=== PATIENT | female | born 1965 | race American Indian/Alaskan Native ===

== ENCOUNTER 2020-01-11 16:39 | Emergency (ER) | payer OTHER ==
[2020-01-11 16:52] VITALS: BP 190/96
--- NOTE | 2020-01-11 16:56 | Event Note ---
ED Screening Note Date of service: 01/11/20 Time: 16:52 ED Screening Note: Pt complains of substernal chest pain and SOB x 1 week hx of HTN denies leg pain, but admits to 6 hour car ride from [place] +leg chronic ankle swelling, no new changes per pt no hormone use or hx of DVT/PE mother has hx of heart dz no ttp of lower legs This initial assessment/diagnostic orders/clinical plan/treatment(s) is/are subject to change based on patients health status, clinical progression and re-assessment by fellow clinical providers in the ED. Further treatment and workup at subsequent clinical providers discretion. Patient/guardian urged not to elope from the ED as their condition may be serious if not clinically assessed and managed. Initial orders include: labs CXR ekg
[2020-01-11 17:14] LABS: Basophils % (Auto) 0.5 % (0.0-1.8); Eosinophils # (Auto) 0.2 K/mm3 (0.0-0.4); Eosinophils % (Auto) 2.3 % (0.0-4.3); Hematocrit 38.4 % (30.3-42.9); Lymphocytes # (Auto) 1.6 K/mm3 (1.2-5.4); Lymphocytes % (Auto) 18.7 % (13.4-35.0); Mean Corpuscular HGB Conc 34 % (30-34); Mean Corpuscular Volume 88 fl (79-97); Monocytes # (Auto) 0.5 K/mm3 (0.0-0.8); Monocytes % (Auto) 5.5 % (0.0-7.3); Platelet Count 206 K/mm3 (140-440); Red Blood Count 4.38 M/mm3 (3.65-5.03); Red Cell Distribution Width 15.6 % (13.2-15.2)
--- NOTE | 2020-01-11 17:26 | XRay Report ---
CHEST 2 VIEWS INDICATION / CLINICAL INFORMATION: Chest Pain. COMPARISON: None available. FINDINGS: SUPPORT DEVICES: None. HEART / MEDIASTINUM: The cardiac silhouette is mildly enlarged. LUNGS / PLEURA: Nonspecific generalized bilateral interstitial opacities are noted without a dense ar ea of consolidation, pneumothorax or pleural effusion. ADDITIONAL FINDINGS: No significant additional findings. IMPRESSION: Mild cardiomegaly with possible interstitial edema. Please correlate with the clinical findings. Signer Name: Carlos Benoit MD Signed: 01/11/2020 5:21 PM Workstation Name: [id number]
[2020-01-11 17:30] LABS: Alanine Aminotransferase 34 units/L (7-56); Albumin 4.1 g/dL (3.9-5); BUN/Creatinine Ratio 18; Blood Urea Nitrogen 14 mg/dL (7-17); Calcium 9.5 mg/dL (8.4-10.2); Hemolysis Index 5
--- NOTE | 2020-01-11 19:30 | Emergency Department Report ---
ED Shortness of Breath HPI - General Chief Complaint: Dyspnea/Respdistress Stated Complaint: SOB Time Seen by Provider: 01/11/20 16:51 Source: patient Mode of arrival: Ambulatory Limitations: No Limitations - History of Present Illness Initial Comments: Ms. Ivory is a 54-year-old female with history of congestive heart failure and hypertension. Patient presented to the ER complaining of shortness of breath and cough for the last week. Patient stated that she has been taking Lasix 40 mg twice a day but she feel her symptoms getting worse now. Patient stated that she was diagnosed with bronchitis and she is using inhaler with no improvement. Patient denied any chest pain, fever or chills. She also denied any nausea or vomiting. MD Complaint: shortness of breath, cough -: week(s) (1) Known History Of: congestive heart failure - Related Data Allergies Allergy/AdvReac Type Severity Reaction Status Date / Time No Known Allergies Allergy Unverified 01/11/20 20:00 ED Review of Systems ROS: Stated complaint: SOB Other details as noted in HPI Comment: All other systems reviewed and negative Constitutional: denies: chills, fever Respiratory: cough, orthopnea, shortness of breath, SOB with exertion, SOB at rest. denies: wheezing Cardiovascular: denies: chest pain, palpitations Gastrointestinal: denies: abdominal pain, nausea, vomiting, diarrhea, c onstipation, hematemesis, melena Musculoskeletal: denies: back pain Neurological: denies: headache, weakness, numbness, paresthesias, confusion, abnormal gait ED Past Medical Hx - Past Medical History Previous Medical History?: No - Surgical History Past Surgical History?: No ED Physical Exam - General Limitations: No Limitations General appearance: alert, in no apparent distress - Head Head exam: Present: atraumatic, normocephalic, normal inspection - Eye Eye exam: Present: normal appearance - ENT ENT exam: Present: normal exam, normal orophraynx, mucous membranes moist - Neck Neck exam: Present: normal inspection, full ROM. Absent: tenderness, meningismus - Respiratory Respiratory exam: Present: normal lung sounds bilaterally - Cardiovascular Cardiovascular Exam: Present: regular rate, normal rhythm, normal heart sounds - GI/Abdominal GI/Abdominal exam: Present: soft, normal bowel sounds. Absent: distended, tenderness, guarding, rebound, rigid, organomegaly, mass, bruit, pulsatile mass, hernia - Extremities Exam Extremities exam: Present: normal inspection, full ROM, normal capillary refill, pedal edema. Absent: calf tenderness - Back Exam Back exam: Present: normal inspection, full ROM. Absent: CVA tenderness (R), CVA tenderness (L) - Neurological Exam Neurological exam: Present: alert, oriented X3, CN II-XII intact, normal gait, reflexes normal. Absent: motor sensory deficit - Psychiatric Psychiatric exam: Present: normal mood - Skin Skin exam: Present: warm, intact, normal color ED Course Vital Signs 01/11/20 16:50 Temperature 98.2 F Pulse Rate 61 Respiratory 18 Rate Blood Pressure 190/96 O2 Sat by Pulse 98 Oximetry ED Medical Decision Making - Lab Data Result diagrams: 01/11/20 17:03 01/11/20 17:03 - EKG Data -: EKG Interpreted by Sc EKG shows normal: sinus rhythm Rate: normal - EKG Data Interpretation: no acute changes - Radiology Data Radiology results: report reviewed - Medical Decision Making Ms. Ivory is a 54-year-old female with history of congestive heart failure and hypertension. Patient presented to the ER complaining of shortness of breath and cough for the last week. Patient stated that she has been taking Lasix 40 mg twice a day but she feel her symptoms getting worse now. Patient stated that she was diagnosed with bronchitis and she is using inhaler with no improvement. Patient denied any chest pain, fever or chills. She also denied any nausea or vomiting. EKG is unremarkable. Chest x-ray showed pulmonary edema. Labs reviewed and unremarkable. Patient advised to increase her Lasix to 60 mg in the morning and 40 at night. Patient given prescription for Lasix 20 mg. Bronchitis is also a possibility so patient given prescription for prednisone and Levaquin and advised to follow-up with her primary doctor in the next 2 to 3 days and to return to the ER if she develop any new symptoms. Critical care attestation.: If time is entered above; I have spent that time in minutes in the direct care of this critically ill patient, excluding procedure time. ED Disposition Clinical Impression: Shortness of breath, CHF exacerbation, Acute bronchitis Disposition: - TO HOME OR SELFCARE Is pt being admited?: No Condition: Stable Instructions: Acute Bronchitis (ED), Heart Failure (ED) Referrals: [facility] [Provider Group] - 3-5 Days
== END 2020-01-11 20:32 | disposition home or self-care (01) ==
LOC: ED 16:39
DX: I11.0 Hypertensive heart disease with heart failure (principal); I50.9 Heart failure, unspecified; J20.9 Acute bronchitis, unspecified; R06.02 Shortness of breath
CPT/HCPCS: 36415; 71046; 80053; 83880; 84484; 85025; 93005

== ENCOUNTER 2020-02-29 09:52 | Emergency (ER) | payer OTHER ==
[2020-02-29] MEDS ORDERED: ASPIRIN 325 MG TAB PO ONE (10:07)
--- NOTE | 2020-02-29 11:03 | XRay Report ---
XR chest 1V ap INDICATION / CLINICAL INFORMATION: Chest Pain. COMPARISON: 03/12/2020 FINDINGS: SUPPORT DEVICES: None. HEART /PULMONARY VASCULATURE: The cardiac silhouette is enlarged with stable prominence of the pulmon jarett vasculature. LUNGS / PLEURA: Stable diffuse increased interstitial markings. No focal airspace consolidation or ef fusion. No pneumothorax. ADDITIONAL FINDINGS: No significant additional findings. IMPRESSION: Cardiomegaly with similar increased interstitial markings, which may reflect interstitial edema. Signer Name: Jonatan Johansen MD Signed: 02/29/2020 10:59 AM Workstation Name: [id number]
[2020-02-29 11:23] LABS: Basophils # (Auto) 0.1 K/mm3 (0.0-0.1); Basophils % (Auto) 0.7 % (0.0-1.8); Eosinophils # (Auto) 0.2 K/mm3 (0.0-0.4); Eosinophils % (Auto) 1.9 % (0.0-4.3); Hematocrit 40.5 % (30.3-42.9); Hemoglobin 13.5 gm/dl (10.1-14.3); Lymphocytes # (Auto) 1.6 K/mm3 (1.2-5.4); Lymphocytes % (Auto) 20.5 % (13.4-35.0); Mean Corpuscular HGB Conc 33 % (30-34); Mean Corpuscular Volume 87 fl (79-97); Monocytes # (Auto) 0.5 K/mm3 (0.0-0.8); Monocytes % (Auto) 6.5 % (0.0-7.3); Platelet Count 204 K/mm3 (140-440); Red Blood Count 4.65 M/mm3 (3.65-5.03); Red Cell Distribution Width 15.4 % (13.2-15.2)
[2020-02-29 11:46] LABS: BUN/Creatinine Ratio 15; Blood Urea Nitrogen 12 mg/dL (7-17); Calcium 9.5 mg/dL (8.4-10.2); Hemolysis Index 7
--- NOTE | 2020-02-29 13:09 | Emergency Department Report ---
ED Chest Pain HPI - General Chief Complaint: Chest Pain Stated Complaint: CHEST PAIN Time Seen by Provider: 02/29/20 12:55 Source: patient Mode of arrival: Ambulatory Limitations: No Limitations - History of Present Illness Initial Comments: Patient is 55 years old female with history of hypertension and congestive heart failure. Patient presented to the ER complaining of chest pain, diffuse with no radiation. Patient described her pain as dull aching. Patient is also complaining of shortness of breath started at the same time when she started scott ving her chest pain approximately 1 week ago. Patient stated that she is out of her Lasix for approximately 10 days now. Patient also stated that she is not compliant with her congestive heart failure diet. Patient denied any fever or chills. No abdominal pain, nausea or vomiting. MD Complaint: chest pain -: week(s) Onset: during rest Pain Location: substernal, left chest, right chest, epigastric Pain Radiation: none Quality: dull Consistency: intermittent - Related Data Previous Rx's Medication Instructions Recorded Last Taken Type Furosemide [Lasix] 20 mg PO QDAY #7 tablet 01/11/20 Unknown Rx Potassium Chloride [K-Dur] 20 meq PO QDAY #30 tablet 01/11/20 Unknown Rx Prednisone [predniSONE 10 mg 10 mg PO .TAPER #1 tab.ds.pk 01/11/20 Unknown Rx (6-Day Pack, 21 Tabs)] levoFLOXacin [Levaquin TAB] 500 mg PO QDAY #7 tablet 01/11/20 Unknown Rx Allergies Allergy/AdvReac Type Severity Reaction Status Date / Time No Known Allergies Allergy Verified 02/29/20 12:55 Heart Score - HEART Score History: Slightly suspicious EKG: Non-specific Age: 45-65 Risk factors: 1-2 risk factors Troponin: < normal limit HEART Score: 3 - Critical Actions Critical Actions: 0-3 pts:0.9-1.7%risk of adverse cardiac event.Candidate for discharge ED Review of Systems ROS: Stated complaint: CHEST PAIN Other details as noted in HPI Comment: All other systems reviewed and negative Constitutional: denies: chills, fever Respiratory: orthopnea, shortness of breath, SOB with exertion. denies: cough Cardiovascular: chest pain. denies: palpitations Gastrointestinal: denies: abdominal pain, nausea, vomiting Musculoskeletal: denies: back pain ED Past Medical Hx - Past Medical History Previous Medical History?: Yes Hx Hypertension: Yes Hx Congestive Heart Failure: Yes - Social History Smoking Status: Never Smoker Substance Use Type: None - Medications Home Medications: Home Medications Medication Instructions Recorded Confirmed Last Taken Type Furosemide [Lasix] 20 mg PO QDAY #7 tablet 01/11/20 Unknown Rx Potassium Chloride [K-Dur] 20 meq PO QDAY #30 tablet 01/11/20 Unknown Rx Prednisone [predniSONE 10 mg 10 mg PO .TAPER #1 tab.ds.pk 01/11/20 Unknown Rx (6-Day Pack, 21 Tabs)] levoFLOXacin [Levaquin TAB] 500 mg PO QDAY #7 tablet 01/11/20 Unknown Rx ED Physical Exam - General Limitations: No Limitations General appearance: alert, in no apparent distress - Head Head exam: Present: atraumatic, normocephalic, normal inspection - Eye Eye exam: Present: normal appearance, PERRL - ENT ENT exam: Present: normal exam, normal orophraynx, mucous membranes moist - Neck Neck exam: Present: normal inspection, full ROM. Absent: tenderness, meningismus - Respiratory Respiratory exam: Present: normal lung sounds bilaterally - Cardiovascular Cardiovascular Exam: Present: regular rate, normal rhythm, normal heart sounds - GI/Abdominal GI/Abdominal exam: Present: soft, normal bowel sounds. Absent: distended, tenderness, guarding, rebound, rigid, organomegaly, mass, bruit, pulsatile mass, hernia - Extremities Exam Extremities exam: Present: normal inspection, full ROM, normal capillary refill. Absent: tenderness - Back Exam Back exam: Present: normal inspection, full ROM. Absent: CVA tenderness (R), CVA tenderness (L) - Neurological Exam Neurological exam: Present: alert, oriented X3, CN II-XII intact - Psychiatric Psychiatric exam: Present: normal mood - Skin Skin exam: Present: warm, intact, normal color ED Course Vital Signs 02/29/20 02/29/20 11:11 11:13 Temperature 98.3 F Pulse Rate 79 Respiratory 18 Rate Blood Pressure 202/90 Blood Pressure 196/95 [Right] O2 Sat by Pulse 98 Oximetry ED Medical Decision Making - Lab Data Result diagrams: 02/29/20 11:13 02/29/20 11:13 - EKG Data -: EKG Interpreted by Mt EKG shows normal: sinus rhythm Rate: normal - EKG Data Interpretation: no acute changes - Radiology Data Radiology results: report reviewed - Medical Decision Making Patient is 55 years old female with history of hypertension and congestive heart failure. Patient presented to the ER complaining of chest pain, diffuse with no radiation. Patient described her pain as dull aching. Patient is also complaining of shortness of breath started at the same time when she started having her chest pain approximately 1 week ago. Patient stated that she is out of her Lasix for approximately 10 days now. Patient also stated that she is not compliant with her congestive heart failure diet. Patient denied any fever or chills. No abdominal pain, nausea or vomiting. EKG is unremarkable. Labs reviewed and is unremarkable including negative troponin x2. I believe patient symptom is most likely related to her congestive heart failure exacerbation. Patient given prescription for Lasix and given [facility] to follow-up with in the next 2 to 3 days. Patient also advised to return to the ER she develop any new symptoms. Critical care attestation.: If time is entered above; I have spent that time in minutes in the direct care of this critically ill patient, excluding procedure time. ED Disposition Clinical Impression: Chest pain, CHF exacerbation Disposition: DC-01 TO HOME OR SELFCARE Is pt being admited?: No Condition: Stable Instructions: Chest Pain (ED), Nonspecific Chest Pain, Adult, Heart Failure, Self Care, [id number] [facility] - [facility] Days
[2020-02-29 15:32] VITALS: BP 197/90
== END 2020-02-29 15:31 | disposition home or self-care (01) ==
LOC: ED 09:52
DX: I50.9 Heart failure, unspecified (principal); I11.0 Hypertensive heart disease with heart failure; R07.89 Other chest pain; Z79.899 Other long term (current) drug therapy
CPT/HCPCS: 36415; 71045; 80048; 84484; 85025; 93005

== ENCOUNTER 2020-09-22 19:34 | Emergency (ER) | payer MEDICAID ==
[2020-09-22] MEDS ORDERED: diphenhydrAMINE 25 MG CAP PO ONE (23:26)
[2020-09-22] MEDS ORDERED: FAMOTIDINE 20 MG TAB PO ONE (23:26)
[2020-09-22] MEDS ORDERED: predniSONE 20 MG TAB PO ONE (23:26)
[2020-09-22] MEDS ORDERED: traMADol 50 MG TAB PO ONE (23:27)
--- NOTE | 2020-09-22 23:44 | Emergency Department Report ---
ED General Adult HPI - General Chief complaint: Extremity Problem,Nontraumatic Stated complaint: INSECT BITE Time Seen by Provider: 09/22/20 23:19 Source: patient Mode of arrival: Ambulatory Limitations: Physical Limitation - History of Present Illness Initial comments: Patient 55-year-old -[place] female who presents for insect bite versus sting to her right posterior lower leg. Patient denies fevers or chills there is no numbness or tingling. No drainage Patient is ambulatory states insect sting occurred today while outside in her yard. Symptoms include burning itching. There are no hives no lesions no shortness of breath wheezing or stridor. Pt advises that she did not see spider or insect. There are no other relieving or exacerbating factors. Severity scale (0 -10): 5 - Related Data Previous Rx's Medication Instructions Recorded Last Taken Type Furosemide [Lasix] 20 mg PO QDAY #7 tablet 01/11/20 Unknown Rx Potassium Chloride [K-Dur] 20 meq PO QDAY #30 tablet 01/11/20 Unknown Rx Prednisone [predniSONE 10 mg 10 mg PO .TAPER #1 tab.ds.pk 01/11/20 Unknown Rx (6-Day Pack, 21 Tabs)] levoFLOXacin [Levaquin TAB] 500 mg PO QDAY #7 tablet 01/11/20 Unknown Rx Furosemide [Lasix] 20 mg PO QDAY #90 tablet 02/29/20 Unknown Rx amLODIPine 5 mg PO DAILY #30 tab 02/29/20 Unknown Rx Famotidine [Pepcid] 20 mg PO BID PRN #30 tablet 09/23/20 Unknown Rx diphenhydrAMINE [Benadryl CAP] 25 mg PO Q8HR PRN #15 capsule 09/23/20 Unknown Rx predniSONE [Deltasone] 40 mg PO QDAY 5 Days #10 tab 09/23/20 Unknown Rx Allergies Allergy/AdvReac Type Severity Reaction Status Date / Time No Known Allergies Allergy Verified 02/29/20 12:55 ED Review of Systems ROS: Stated complaint: INSECT BITE Other details as noted in HPI Constitutional: denies: chills, fever Eyes: denies: eye pain, eye discharge, vision change ENT: denies: ear pain, throat pain Respiratory: denies: cough, shortness of breath, wheezing Cardiovascular: denies: chest pain, palpitations Endocrine: no symptoms reported Gastrointestinal: denies: abdominal pain, nausea, vomiting, diarrhea Genitourinary: denies: urgency, dysuria, discharge Musculoskeletal: denies: back pain, joint swelling, arthralgia Skin: rash (right posterior lower leg). denies: lesions Neurological: denies: headache, weakness, paresthesias Psychiatric: denies: anxiety, depression Hematological/Lymphatic: denies: easy bleeding, easy bruising ED Past Medical Hx - Past Medical History Previous Medical History?: Yes Hx Hypertension: Yes Hx Congestive Heart Failure: Yes Additional medical history: bronchitis - Surgical History Past Surgical History?: No - Social History Smoking Status: Never Smoker Substance Use Type: None - Medications Home Medications: Home Medications Medication Instructions Recorded Confirmed Last Taken Type Furosemide [Lasix] 20 mg PO QDAY #7 tablet 01/11/20 Unknown Rx Potassium Chloride [K-Dur] 20 meq PO QDAY #30 tablet 01/11/20 Unknown Rx Prednisone [predniSONE 10 mg 10 mg PO .TAPER #1 tab.ds.pk 01/11/20 Unknown Rx (6-Day Pack, 21 Tabs)] levoFLOXacin [Levaquin TAB] 500 mg PO QDAY #7 tablet 01/11/20 Unknown Rx Furosemide [Lasix] 20 mg PO QDAY #90 tablet 02/29/20 Unknown Rx amLODIPine 5 mg PO DAILY #30 tab 02/29/20 Unknown Rx Famotidine [Pepcid] 20 mg PO BID PRN #30 tablet 09/23/20 Unknown Rx diphenhydrAMINE [Benadryl CAP] 25 mg PO Q8HR PRN #15 capsule 09/23/20 Unknown Rx predniSONE [Deltasone] 40 mg PO QDAY 5 Days #10 tab 09/23/20 Unknown Rx ED Physical Exam - General Limitations: Physical Limitation General appearance: alert, in no apparent distress - Head Head exam: Present: atraumatic, normocephalic - Eye Eye exam: Present: normal appearance, EOMI Pupils: Present: normal accommodation - ENT ENT exam: Present: mucous membranes moist - Neck Neck exam: Present: normal inspection, full ROM. Absent: tenderness - Respiratory Respiratory exam: Present: normal lung sounds bilaterally. Absent: respiratory distress, wheezes, stridor, chest wall tenderness - Cardiovascular Cardiovascular Exam: Present: regular rate, normal rhythm, normal heart sounds. Absent: systolic murmur, diastolic murmur, rubs, gallop - GI/Abdominal GI/Abdominal exam: Present: soft, normal bowel sounds. Absent: distended, tenderness - Rectal Rectal exam: Present: deferred - Extremities Exam Extremities exam: Present: normal inspection, full ROM. Absent: tenderness, pedal edema, calf tenderness - Expanded Lower Extremity Exam Right Lower Leg exam: Present: full ROM, tenderness, swelling (mild erythem swelling ), erythema (raised smooth erythem sting /bite site, no weeping, no fever , no crepitus, non purulent) Ankle exam: Present: normal inspection. Absent: full ROM, tenderness Foot/Toe exam: Present: normal inspection, full ROM. Absent: tenderness Neuro vascular tendon exam: Absent: pulse deficit, motor deficit, sensory deficit, tendon deficit Gait: Positive: observed and normal - Back Exam Back exam: Present: normal inspection, full ROM. Absent: tenderness - Neurological Exam Neurological exam: Present: alert, oriented X3, normal gait - Psychiatric Psychiatric exam: Present: normal affect, normal mood - Skin Skin exam: Present: warm, dry, intact, normal color, rash (right posterior lower leg as above ) ED Course Vital Signs 09/22/20 09/23/20 20:40 00:07 Temperature 99.1 F Pulse Rate 86 Respiratory 16 20 Rate Blood Pressure 182/89 [Left] O2 Sat by Pulse 95 Oximetry ED Medical Decision Making - Medical Decision Making This is a local reaction to insect sting versus bite, plan DC to home with prescriptions for prednisone, Benadryl, Pepcid. There is no acute cellulitis at this time. Patient is alert oriented x3, patient is amatory with steady gait, distal pulses are intact there is no fever no weeping. Patient will be DC'd home in stable condition at this time. Critical care attestation.: If time is entered above; I have spent that time in minutes in the direct care of this critically ill patient, excluding procedure time. ED Disposition Clinical Impression: Insect bite of lower leg with local reaction Qualifiers: Encounter type: initial encounter Laterality: right Qualified Code(s): S80.861A - Insect bite (nonvenomous), right lower leg, initial encounter Disposition: DC-01 TO HOME OR SELFCARE Is pt being admited?: No Does the pt Need Aspirin: No Instructions: Insect Bite, Adult, [id number], Spider Bite, [id number] Additional Instructions: Take medications as prescribed. Use warm compresses to site. Return to emergency should symptoms worsen. Prescriptions: diphenhydrAMINE [Benadryl CAP] 25 mg PO Q8HR PRN #15 capsule PRN Reason: Itching predniSONE [Deltasone] 40 mg PO QDAY 5 Days #10 tab Famotidine [Pepcid] 20 mg PO BID PRN #30 tablet PRN Reason: Allergy Symptoms Referrals: NEDA PANTOJA MD [Staff Physician] - 3-5 Days Forms: Work/School Release Form(ED) Time of Disposition: 00:18
[2020-09-23 02:06] VITALS: BP 166/78
== END 2020-09-23 00:50 | disposition home or self-care (01) ==
LOC: ED 19:34
DX: S80.861A Insect bite (nonvenomous), right lower leg, initial encounter (principal); I11.0 Hypertensive heart disease with heart failure; I50.9 Heart failure, unspecified; Z79.899 Other long term (current) drug therapy; W57.XXXA Bitten or stung by nonvenomous insect and other nonvenomous arthropods, initial encounter; Y93.89 Activity, other specified; Y92.89 Other specified places as the place of occurrence of the external cause; Y99.8 Other external cause status
CPT/HCPCS: 99282; J7512

== ENCOUNTER 2021-12-05 07:50 | Day surgery (SDC) | payer MEDICAID ==
[~2021-12-05 07:50] MED LIST: SODIUM CHLORIDE 0.9% 1000 ML 1,000 ML IV SCH; WATER FOR IRRIG STERILE 1,000 ML BOTTLE ONE; WATER FOR IRRIG STERILE 250 ML BOTTLE IR ONE
--- NOTE | 2021-12-05 08:39 | Anesthesia Consultation ---
Anesthesia Consult and Med Hx Date of service: 12/05/21 - Airway Anesthetic Teeth Evaluation: Good ROM Head & Neck: Adequate Mental/Hyoid Distance: Adequate Mallampati Class: Class III Intubation Access Assessment: Possibly Difficult - Pre-Operative Health Status ASA Pre-Surgery Classification: ASA4 Proposed Anesthetic Plan: MAC - Pulmonary Hx Smoking: Yes (former smoker quit 3yrs) SOB: Yes (chronic; recent neg heart cath per patient) Hx Sleep Apnea: Yes (+ CPAP) - Cardiovascular System Hx Hypertension: Yes (took antihypertensive this morning) Hx Heart Attack/AMI: No (hx CHF; no signs/symptoms decompensation today) Hx Cardia Arrhythmia: No - Central Nervous System CVA: No - Endocrine Hx Renal Disease: No Hx Liver Disease: Yes (fatty liver) Hx Insulin Dependent Diabetes: No Hx Non-Insulin Dependent Diabetes: No Hx Thyroid Disease: No - Other Systems Hx Obesity: Yes (BMI 51) - Additional Comments Anesthesia Medical History Comments: No hx anesthetic complications.
--- NOTE | 2021-12-05 08:39 | Anesthesia Day of Surgery ---
Anesthesia Day of Surgery - Day of Surgery Patient Examined: Yes Patient H&P Reviewed: Yes Patient is NPO: Yes
[2021-12-05] MEDS ORDERED: propofoL 200 MG/20 ML VIAL IV ONE ×2 (09:55)
--- NOTE | 2021-12-05 10:47 | Short Stay Summary ---
Short Stay Documentation Date of service: 12/05/21 Narrative H&P: The patient presents for EGD to evaluate unexplained upper abdominal pain. - History Past Medical History: heart failure, hypertension, other (History of colon polyps) Past Surgical History: No surgical history Social history: no significant social history - Allergies and Medications Current Medications: Allergies No Known Allergies Allergy (Verified 02/29/20 12:55) Home Medications Medication Instructions Recorded Confirmed Last Taken Type Furosemide [Lasix] 20 mg PO QDAY #7 tablet 01/11/20 Unknown Rx amLODIPine 5 mg PO DAILY #30 tab 02/29/20 Unknown Rx Famotidine [Pepcid] 20 mg PO BID PRN #30 tablet 09/23/20 Unknown Rx Losartan 12/05/21 Unknown History Active Medications Sodium Chloride (Nacl 0.9% 1000 Ml) 1,000 mls @ 50 mls/hr IV DIRECT CHAYITO - Physical exam General appearance: no acute distress, well-nourished, obese Integumentary: no rash, no growths, no abnormal pigmentation HEENT: Atraumatic, PERRLA, EOMI, Mucous membr. moist/pink Lungs: Clear to auscultation, Normal air movement Breasts: deferred Heart: Regular rate, Normal S1, Normal S2, No murmurs Gastrointestinal: normoactive bowel sounds, no tenderness, no distended, no masses, no guarding, no organomegaly, obese Female Genitourinary: deferred Rectal Exam: deferred, no mass Extremities: no ischemia, pulses intact, pulses symmetrical, No edema, normal temperature, normal color, Full ROM Neurological: Normal gait, Normal speech, Strength at 5/5 X4 ext, Normal tone, Sensation intact, Cranial nerves 3-12 NL - Brief post op/procedure progress note Date of procedure: 12/05/21 Findings: see dictation Estimated blood loss: none Pathology: list (antral biopsies for h pylori) Specimen disposition: to lab Condition: stable - Disposition Condition at discharge: Good Disposition: 01 HOME / SELF CARE / HOMELESS - Discharge Diagnoses (1) Upper abdominal pain Status: Acute Short Stay Discharge Plan Activity: other (no driving for 24 hours) Weight Bearing Status: Weight Bear as Tolerated Diet: regular Follow up with: PRIMARY CARE, [Primary Care Provider] - 7 Days
--- NOTE | 2021-12-05 10:50 | Operative Report ---
Operative Report Operative Report: Date of procedure: 12/05/2021 Procedure: Esophagogastroduodenoscopy with biopsies of the antrum for H. pylori Preprocedure diagnosis: Persistent upper abdominal pain, unexplained Post procedure diagnosis: Mild diffuse antral gastritis Endoscopist: Dr. Salcido Anesthesia: Monitored anesthesia care per anesthesia department Medications: Propofol per anesthesia Estimated blood loss: 0 After careful discussion of the nature and purpose of the procedure as well as details the technique risks benefits and alternatives consent was obtained. The patient was placed in the left lateral decubitus position and medicated per anesthesia. The tip of the [employer] EQ 570 video scope was passed per orum under direct vision into the esophagus and advanced into the stomach and descending duodenum. The descending duodenum the duodenal bulb and pylorus were symmetrical and normal. The scope was withdrawn into the stomach and the stomach then gently insufflated with air. The antrum revealed patchy erythema. There were no ulcers or erosions. Multiple biopsies were taken for H. pylori testing. The stomach was further insufflated and the scope was then retroflexed and partially withdrawn. The cardia, fundus, and body of the stomach were within normal limits and easily distensible.The scope was then withdrawn in the forward position. The esophagogastric junction was at 40 cm. The esophageal body was normal throughout. The procedure was was well tolerated and the patient was observed in recovery. Impressions: Mild antral gastritis. Normal appearing upper digestive tract otherwise. Plan: Await biopsies for H. pylori. Electronically signed: Wilder Salcido MD
--- NOTE | 2021-12-05 12:03 | Post Anesthesia Evaluation ---
- Post Anesthesia Evaluation Patient Participated: Yes Airway Patent: Yes Stable Respiratory Function: Yes Nausea/Vomiting: No Temp > 96.8F: Yes Pain Manageable: Yes Adequeate Hydration: Yes Anesthesia Complications: No
[2021-12-05 14:32] VITALS: BP 149/83
== END 2021-12-05 11:30 | disposition home or self-care (01) ==
LOC: GIO 07:50
PROVIDERS: ATTEND Internal Medicine Gastroenterology
DX: R10.10 Upper abdominal pain, unspecified (principal); K29.70 Gastritis, unspecified, without bleeding; K29.50 Unspecified chronic gastritis without bleeding; B96.81 Helicobacter pylori [H. pylori] as the cause of diseases classified elsewhere; I11.0 Hypertensive heart disease with heart failure; I50.9 Heart failure, unspecified; G47.33 Obstructive sleep apnea (adult) (pediatric); E66.9 Obesity, unspecified; K76.0 Fatty (change of) liver, not elsewhere classified; Z87.891 Personal history of nicotine dependence; Z79.899 Other long term (current) drug therapy; Z98.891 History of uterine scar from previous surgery; Z68.43 Body mass index [BMI] 50.0-59.9, adult
CPT/HCPCS: 43239; 88305; 88342; J2704; J7030